=== PATIENT | male | born 1960 | race Caucasian/White ===

== ENCOUNTER 2023-07-19 12:10 | Emergency (ER) | payer BC, SELFPAY ==
[2023-07-19 12:14] VITALS: BP 119/68
[2023-07-19 12:42] LABS: % Basophils 0.5 % (0-2); % Eosinophils 0.2 % (0-6); % Immature Granulocytes 0.3 % (0-0.5); % Lymphocytes 10.1 % (20.5-51.1); % Monocytes 2.5 % (1.7-9.3); % Neutrophils 86.4 % (42.2-75.2); Absolute Basophils 0.1 10^3/uL (0-0.2); Absolute Lymphocytes 1.2 10^3/uL (1.2-3.4); Absolute Monocytes 0.3 10^3/uL (0.1-0.6); Absolute Neutrophils 9.9 10^3/uL (1.4-6.5); Hematocrit 41.3 % (39.0-52.0); Hemoglobin 14.7 g/dL (13.0-18.0); Mean Corp Hgb Conc. 35.6 g/dL (33.0-37.0); Mean Corpuscular Hgb 29.6 pg (27.0-31.0); Mean Corpuscular Volume 83.1 fL (80.0-94.0); Mean Platelet Volume 9.3 fL (7.4-10.4); Nucleated Red Blood Cells % 0 % (-); Platelet Count 201 10^3/uL (130-400); Red Blood Cell Count 4.97 10^6/uL (4.70-6.10); Red Cell Dist. Width 12.1 % (11.5-14.5); White Blood Cell Count 11.4 10^3/uL (4.8-10.8)
[2023-07-19 12:47] LABS: ALT (SGPT) 11 U/L (0-50); AST (SGOT) 31 U/L (17-59); Albumin 4.7 g/dl (3.5-5.0); Alkaline Phosphatase 97 U/L (38-126); Blood Urea Nitrogen 26 mg/dl (9-20); Calcium 9.5 mg/dl (8.4-10.2); Carbon Dioxide 20 mmol/L (22-30); Chloride 109 mmol/L (98-107); Glucose 119 mg/dl (70-99); Lipase 77 U/L (23-300); Potassium 4.2 mmol/L (3.5-5.1); Sodium 136 mmol/L (135-145); Total Bilirubin 0.8 mg/dl (0.2-1.3); Total Protein 7.4 g/dl (6.3-8.2); eGFR > 60.00
[2023-07-19] MEDS: TORADOL 15 MG IV ×2 (13:58→14:59)
[2023-07-19] MEDS: NSS 1000 IV (13:58)
[2023-07-19] MEDS: ZOFRAN 4 MG IV ×2 (13:58→14:59)
[2023-07-19 14:05] VITALS: BP 160/108
[2023-07-19] MEDS: HALDOL 1 MG IV ×2 (15:56→16:52)
[2023-07-19] MEDS: ZOSTRIX-HP 0.075% CREAM 1 APPLIC TOPICAL (16:24)
--- NOTE | 2023-07-19 17:52 | ED.GENMED ---
History of Present Illness
General
Chief Complaint: Abdominal Symptoms
Source: patient
Exam Limitations: none
Time Seen by Provider: 07/19/23 13:40
Nursing documentation reviewed up to this point in time: agreed with
Travel History
Have you had any contact with someone who has COVID-19?: No
Do you have any symptoms of coronavirus? Fever > 100 degrees, chills, cough, shortness of breath, sore throat, loss of taste or smell, muscle aches, or headache?: No
History of Present Illness
History of Present Illness:
62-year-old male with past medical history of pancreatitis previous alcohol use disorder presenting to the emergency department today with concerns of significant nausea vomiting abdominal cramping throughout the day today. Does claim that he also
uses marijuana daily and he claims this is a large amount. Has had somewhat similar episodes in the past and the pending negative workup from previous visits. He also did previously have pancreatitis but this feels very different from that.
Denies chest pain shortness of breath fevers.
Past History
Past History
ED Past Medical History: Other (Pancreatitis, duodenitis)
ED Past Surgical History: Other (Hernia)
Social History
Tobacco: Non-smoker
Alcohol: Former
Personal:
Living: with family
Employment: Employed
Family History
Family History: Other (Noncontributory); Negative CAD
Review of Systems
Review of Systems
Allergies reviewed?: Yes
All Other Systems: ROS reviewed and negative except as documented in HPI and ROS
Phy Exam
Physical Exam
Physical Exam:
GENERAL: Alert , in no apparent distress
EYE: pupils equal and reactive
NECK: Supple, no significant adenopathy.
ENT: o/p clr, mmm.
CARDIAC: Regular rate and rhythm .
LUNGS: Clear breath sounds bilaterally, no acute respiratory distress, no wheezes/rales/rhonchi
ABDOMEN: Soft, without focal tenderness, no r/g, no cvat
NEUROLOGICAL: Alert and oriented, no focal neuro deficits
SKIN: Warm and dry, skin intact.
MUSCULOSKELETAL: No edema, well perfused.
PSYCH: Normal and appropriate interaction.
Course
Orders/Labs/Results
Orders:
Orders
07/19/23 12:20
Complete Blood Count/With Diff Urgent
Comprehensive Metabolic Panel Urgent
Lipase Urgent
07/19/23 13:49
CT Abd/Pel (IV only)-DH only Urgent
Comment:
Reason For Exam: abd pain rifght sided
0.9% Sodium Chloride 1000 ml [Nss] 1,000 ml IV BOLUS
Ketorolac [Toradol] 15 mg IV NOW STA
Ondansetron Injectable [Zofran] 4 mg IV NOW STA
07/19/23 14:52
Ketorolac [Toradol] 15 mg IV NOW STA
Ondansetron Injectable [Zofran] 4 mg IV NOW STA
07/19/23 15:47
Haloperidol Lactate [Haldol] 1 mg IV NOW STA
07/19/23 15:59
Electrocardiogram (*1) Urgent
Reason for Study: QTc Monitoring
EKG- Treatment ONCE
07/19/23 16:43
Haloperidol Lactate [Haldol] 1 mg IV NOW STA
07/19/23 17:00
Capsaicin [Zostrix-Hp 0.075% Cream] See Dose Instructions TOPICAL ONCE ONE
07/19/23 18:00
Capsaicin [Zostrix-Hp 0.075% Cream] See Dose Instructions TOPICAL QID
Abnormal Lab Results
07/19/23
12:20
WBC 11.4 H 10^3/uL
(4.8-10.8)
Absolute Neuts (auto) 9.9 H 10^3/uL
(1.4-6.5)
Neutrophils % 86.4 H %
(42.2-75.2)
Lymphocytes % 10.1 L %
(20.5-51.1)
Chloride 109 H mmol/L
(98-107)
Carbon Dioxide 20 L mmol/L
(22-30)
BUN 26 H mg/dl
(9-20)
Glucose 119 H mg/dl
(70-99)
07/19/23 12:20
07/19/23 12:20
Vital Signs
Initial and Last Documented VS:
Initial Vital Signs
Temp Pulse Resp BP Pulse Ox
98.5 F 64 18 119/68 97
07/19/23 12:14 07/19/23 12:14 07/19/23 12:14 07/19/23 12:14 07/19/23 12:14
Last Documented Vital Signs
Temp Pulse Resp BP Pulse Ox
98.5 F 73 19 160/108 99
07/19/23 12:14 07/19/23 14:05 07/19/23 14:05 07/19/23 14:05 07/19/23 14:05
MDM/Problems Addressed
MDM/Problems Addressed:
62-year-old male presenting to the emergency department today with concerns of nausea vomiting and diffuse abdominal cramping. Here on assessment his abdomen has no specific focal tenderness but he claims that there is achiness throughout. He was
retching during my examination. Vital signs normal upon arrival. Labs obtained with a white count 11.4 otherwise an elevated BUN to creatinine ratio patient was given a liter of fluid. CT scan without emergent findings. Patient claims he does
use a large amount of marijuana which raise the concern for l cannabinol hyperemesis syndrome. Due to this patient was given a dose of Haldol did have some improvement of symptoms he claims this helped much more than the previous medications.
Concerning this he was advised to abstain from ongoing marijuana use and was given strict return precautions.
*Critical Care Note
Total Time (30-74mins, 75-104mins- exclusive of procedures): Not Applicable
ED Attending Note
-
Portions of this chart may have been created with voice recognition software.� Occasional wrong word or��sound alike� substitutions may have occurred due to the inherent limitations of voice recognition software.
Discharge Plan
Departure
Patient Disposition: Home (Routine Discharge)
Date of Disposition: 07/19/23
Time of Disposition: 18:11
Patient with high blood pressure during this ER visit?: No
Condition: Good
Covid-19: Not Applicable
Discharge Problem:
Abdominal pain, Vomiting
Instructions: Cannabis hyperemesis syndrome, Abdominal Pain
Prescriptions:
New
ondansetron 4 mg tablet,disintegrating
4 mg PO Q6H PRN (Reason: nausea and vomiting) Qty: 7 0RF
No Action
omeprazole magnesium [Prilosec OTC] 20 MG tablet,delayed release (DR/EC)
20 mg PO DAILY Qty: 90 0RF
Rx Instructions:
BID for 2 weeks , then daily
loratadine-pseudoephedrine 120 MG/5 MG tablet extended release 12 hr
1 tab PO DAILY
tramadol 50 MG tablet
50 mg PO Q6HPRN PRN (Reason: severe pain) Qty: 8 0RF
ondansetron 4 MG tablet,disintegrating
4 mg PO TIDPRN PRN (Reason: nausea/vomiting) Qty: 6 0RF
Referrals:
Malou Lynne CRNP [Family Provider] -
Activity Restrictions/Additional Instructions:
You came to the emergency department today with concerns of abdominal pain nausea vomiting. Here you had slight dehydration on your labs she was given fluids otherwise your CT scan did not show any emergent features. This could be related to
marijuana use. It is recommended to abstain in the future. You can also take Zofran 1 tab every 6 hours as needed for nausea. Return to the emergency department any worsening, new or concerning symptoms.
Interventions
Interventions:
*Risk Screen - Suicide Last Done: 07/19/23 12:14
*General Assessment Last Done: 07/19/23 12:14
*Neglect/Abuse Screening Last Done: 07/19/23 12:14
*ED COVID-19 Vaccine History Last Done: 07/19/23 12:14
GW-Nkuupy-Zcwprothsr Assessment Last Done: 07/19/23 14:01
[2023-07-19 18:11] VITALS: BP 161/90
== END 2023-07-19 18:17 | disposition home or self-care (01) ==
LOC: EMR 12:10
PROVIDERS: Emergency Medicine; EMERGENCY PHYSICIAN Emergency Medicine; FAMILY PHYSICIAN Nurse Practitioner Family
DX: R10.9 Unspecified abdominal pain (principal); R11.2 Nausea with vomiting, unspecified; F12.90 Cannabis use, unspecified, uncomplicated
CPT/HCPCS: 99285; 96374; 96375 ×2; 96361; 96376 ×3; 74177; 80053; 83690; 85025; 93005; Q9967

== ENCOUNTER 2023-08-12 16:59 | Emergency (ER) | payer BC, SELFPAY ==
[2023-08-12 17:04] VITALS: BP 152/83
--- NOTE | 2023-08-12 20:19 | ED.SKININJ ---
HPI-Injury
General
Chief Complaint: Skin Surface Trauma
Source: patient
Exam Limitations: none
Time Seen by Provider: 08/12/23 18:20
Nursing documentation reviewed up to this point in time: agreed with
Travel History
Have you had any contact with someone who has COVID-19?: No
Do you have any symptoms of coronavirus? Fever > 100 degrees, chills, cough, shortness of breath, sore throat, loss of taste or smell, muscle aches, or headache?: No
History of Present Illness-Injury
Initial Injury comments:
62-year-old male states he was using a chop saw at home within past few hours when he accidentally struck his left lateral forearm just below the elbow.
Past History
Past History
ED Past Medical History: Other (Pancreatitis, duodenitis)
ED Past Surgical History: Other (Hernia)
Social History
Tobacco: Non-smoker
Alcohol: Former
Personal:
Living: with family
Employment: Employed
Family History
Family History: Other (Noncontributory); Negative CAD
Review of Systems
Review of Systems
Allergies reviewed?: Yes
All Other Systems: ROS reviewed and negative except as documented in HPI and ROS
Musculoskeletal: Reports other (no limitation in ROM of LUE)
Skin: Reports other (deep cut left forearm)
Neurological: Denies weakness or numbness
Skin Exam
Laceration
lateral left forearm just below elbow:
Length in cm: 7
Orientation: diagonal
Type of Laceration: layered
Any active bleeding?: low grade venous oozing
Distal skin color and temperature: normal-warm & good color
Normal distal neurovascular exam: Yes
Range of motion: full
Phy Exam
Physical Exam
Physical Exam:
PHYSICAL EXAMINATION:
General: no apparent distress, not acutely ill
Neuro: alert and oriented.
Psychiatric: well kept. interactive and cooperative
Musculoskeletal: Full ROM of elbow and wrist. Sensation intact distal to wound. Moves with ease
Skin: Warm, pink.
Course
Orders/Labs/Results
Orders:
Orders
08/12/23 18:38
Forearm, Left 2 View [CR Forearm - Left 2 View] Urgent
Comment:
Reason For Exam: deep laceration proximal forearm
08/12/23 20:19
Cephalexin Monohydrate [Keflex] 500 mg PO NOW STA
08/12/23 20:22
Tetanus/Diphth/Acelpertussis [Adacel] 0.5 ml IM .ONCE ONE
Vital Signs
Initial and Last Documented VS:
Initial Vital Signs
Temp Pulse Resp BP Pulse Ox
98.0 F 82 20 152/83 96
08/12/23 17:04 08/12/23 17:04 08/12/23 17:04 08/12/23 17:04 08/12/23 17:04
Last Documented Vital Signs
Temp Pulse Resp BP Pulse Ox
98.0 F 82 20 152/83 96
08/12/23 17:04 08/12/23 17:04 08/12/23 17:04 08/12/23 17:04 08/12/23 17:04
Procedures
Laceration Closure
lateral left forearm just below elbow:
Status of Wound: clean
Description of Wound Edges: ragged
Preparation: cleaned with saline (soft betadine scrub)
Anesthesia: 1% Lidocaine with epi
Revision/Debridement: minor revision
Wound exploration: explored to base- no FB and no tendon involvement
Type of Closure: layered closure and mattress sutures
Skin Closure Material: 4-0 nylon (#8 mattress sutures to surface laceration) and 4-0 prolene (# 4 sutures to approximate small muscle/fascia layer)
Number of sutures: 12
Additional information:
Area cleansed with soap and water, antibiotic ointment and nonstick and sterile gauze dressing applied.
MDM/Problems Addressed
MDM/Problems Addressed:
62-year-old male states he was using a chop saw at home within past few hours when he accidentally struck his left lateral forearm just below the elbow.
Other than muscle and facia layer having 2 cm laceration, no tendon involvement, no significant blood vessel damage, full ROM
Rx for Keflex sent to pt pharmacy
dT updated
*Critical Care Note
Total Time (30-74mins, 75-104mins- exclusive of procedures): Not Applicable
ED Attending Note
-
Portions of this chart may have been created with voice recognition software.� Occasional wrong word or��sound alike� substitutions may have occurred due to the inherent limitations of voice recognition software.
Discharge Plan
Departure
Patient Disposition: Home (Routine Discharge)
Date of Disposition: 08/12/23
Time of Disposition: 20:22
Patient with high blood pressure during this ER visit?: No
Condition: Good
Discharge Problem:
Laceration of left forearm
Instructions: Laceration Repair With Stitches (DC)
Prescriptions:
New
cephalexin 500 mg capsule
500 mg PO QID 7 Days Qty: 28 0RF
No Action
omeprazole magnesium [Prilosec OTC] 20 MG tablet,delayed release (DR/EC)
20 mg PO DAILY Qty: 90 0RF
Rx Instructions:
BID for 2 weeks , then daily
loratadine-pseudoephedrine 120 MG/5 MG tablet extended release 12 hr
1 tab PO DAILY
tramadol 50 MG tablet
50 mg PO Q6HPRN PRN (Reason: severe pain) Qty: 8 0RF
ondansetron 4 MG tablet,disintegrating
4 mg PO TIDPRN PRN (Reason: nausea/vomiting) Qty: 6 0RF
ondansetron 4 mg tablet,disintegrating
4 mg PO Q6H PRN (Reason: nausea and vomiting) Qty: 7 0RF
Referrals:
Malou Lynne CRNP [Family Provider] - Call in 1-3 days for appt
Activity Restrictions/Additional Instructions:
As we discussed, have the sutures removed in 10 to 12 days.
Call your primary provider's office tomorrow morning and make the appointment
Seek medical care immediately for signs of infection which may include increasing pain, swelling, redness, red streak up the arm, pus drainage or fever
I sent a prescription to your pharmacy for antibiotic Keflex 500 mg to take 4 times a day for 7 days
Tylenol or ibuprofen as needed for pain
Do not lift things with the arm for 3 days, after that do not lift anything over 5 pounds with the arm until the sutures are removed.
Interventions
Interventions:
*ED COVID-19 Vaccine History Last Done: 08/12/23 17:04
*Nursing Disposition Last Done: 08/12/23 20:31
ED-Skin Assessment Last Done: 08/12/23 18:54
Discharge Date and Time
Discharge Date/Time: 08/12/23 20:32
Print Language: KENYAN
[2023-08-12] MEDS: ADACEL 0.5 ML IM (20:25)
[2023-08-12] MEDS: KEFLEX 500 MG PO (20:25)
== END 2023-08-12 20:32 | disposition home or self-care (01) ==
LOC: EMR 16:59
PROVIDERS: EMERGENCY PHYSICIAN Student in an Organized Health Care Education/Training Program; FAMILY PHYSICIAN Nurse Practitioner Family
DX: S51.812A Laceration without foreign body of left forearm, initial encounter (principal); W29.8XXA Contact with other powered hand tools and household machinery, initial encounter; Z87.19 Personal history of other diseases of the digestive system
CPT/HCPCS: 99283; 12002; 90471; 73090; 90715

== ENCOUNTER → 2023-11-07 06:41 | Day surgery (SDC) | payer BC, SELFPAY | LOC: GI 06:41 | PROVIDERS: ATTENDING PHYSICIAN Internal Medicine Gastroenterology | DX: Z12.11 Encounter for screening for malignant neoplasm of colon (principal); K64.8 Other hemorrhoids; K57.30 Diverticulosis of large intestine without perforation or abscess without bleeding | CPT/HCPCS: G0121 ==